=== PATIENT | female | born 1965 | race Caucasian/White ===

== ENCOUNTER 2018-11-11 10:56 | Inpatient (IN) | payer BC ==
[2018-11-11 11:28] VITALS: BMI 30.9
--- NOTE | 2018-11-11 11:46 | HP ---
Screened but not Admitted - Documentation of Visit Screened but not Admitted: Yes Left Prior to Completion of Assessment: No Insurance Authorization Denied: No Level of Care Recommended at this Time: ER Evaluation/Care Additional Information/Explanation: this 53 years old female with alcohol dependence,present in c for evaluation,. fell 2 days ago. ecchymosis with swelling left orbit,right knee with abrsion,left elbow with pain,. hisotry of hypertension,right knee replacement in 2017,abraionn of right knee,. s/p gastric by pass surgery in 2011. ambulation with walker. also complained of abdominal pain. bp 141/86,p112,r20,t97.4. ced 0.096. weight 192,t 5'6''. impression alcohol dependence. multiple contusion of left orbit,right knee, left elbow. s/p right knee replacement. s/p gastric bypass surgery. hypertension. abdominal pain. r/o fx floor of left orbit. ambulation with walker. to er at [facility] for evaluation,endorsed to Dr Kimble. trasported by [facility]. . .
[2018-11-11] MEDS ORDERED: BISMUTH SUBSALICYLATE 524 MG/30 ML UD PO PRN (17:09)
[2018-11-11] MEDS ORDERED: MAGNESIUM CITRATE 300 ML BOTTLE PO PRN (17:09)
[2018-11-11] MEDS ORDERED: MENTHOL/PHENOL 1 EACH UD MM PRN (17:09)
[2018-11-11] MEDS ORDERED: NICOTINE POLACRILEX 2 MG GUM BUC PRN (17:09)
[2018-11-11] MEDS ORDERED: hydrOXYzine PAMOATE 25 MG CAPSULE (FP) PO PRN (17:09)
[2018-11-11] MEDS ORDERED: ONDANSETRON *ODT* 4 MG TABLET SL PRN (17:09)
[2018-11-11] MEDS ORDERED: MAGNESIUM HYDROX 2400MG/30ML ORAL SUSPENSION 30 ML CUP PO PRN (17:09)
[2018-11-11] MEDS ORDERED: chlordiazePOXIDE HCL 25 MG CAPSULE PO PRN (17:09)
[2018-11-11] MEDS ORDERED: ACETAMINOPHEN 325 MG TABLET (FP) PO PRN ×2 (17:09)
[2018-11-11] MEDS ORDERED: ALBUTEROL SO4 8 GM HFA INHALER IH PRN (17:15)
--- NOTE | 2018-11-11 17:32 | HP ---
CIWA Score Nausea/Vomitin-Int. Nausea w/Dry Heave Muscle Tremors: 4-Moderate,w/Arms Extend Anxiety: 3 Agitation: 0-Normal Activity Paroxysmal Sweats: 2 Orientation: 0-Oriented Tacttile Disturbances: 2-Mild Itch/Numbness/Burn Auditory Disturbances: 0-None Visual Disturbances: 2-Mild Sensitivity Headache: 0-None Present CIWA-Ar Total Score: 17 - Admission Criteria OASAS Guidelines: Admission for Medically Managed Detox: Requires at least one of the followin. CIWA greater than 12 2. Seizures within the past 24 hours 3. Delirium tremens within the past 24 hours 4. Hallucinations within the past 24 hours 5. Acute intervention needed for co occurring medical disorder 6. Acute intervention needed for co occurring psychiatric disorder 7. Severe withdrawal that cannot be handled at a lower level of care (continued vomiting, continued diarrhea, abnormal vital signs) requiring intravenous medication and/or fluids 8. Patient presents the following: CIWA greater than 12 Admission Criteria Met: Admission criteria met Admission ROS S - HPI Chief Complaint: " alcohol withdrawal symptoms" Allergies/Adverse Reactions: Allergies Allergy/AdvReac Type Severity Reaction Status Date / Time No Known Allergies Allergy Verified 11/11/18 11:28 History of Present Illness: 53 yo female, presents today for alcohol detox, patient was evaluated for a fall at [facility] today and is medically cleared Neg facial and head CT and x -ray of the knee. Patient with hx of nicotine and alcohol dependence. Last detox [facility] one year ago. PMHX: urinary incontinence, GERD, Gastric Bypass, HTN, Urinary incontinence, asthma. Psych: depression and bipolar. Denies suicidal / homicidal ideation or hx of suicide attempt. Denies hx of seizures. Reports hx of alcohol blackouts. Exam Limitations: No Limitations - Ebola screening Have you traveled outside of the country in the last 21 days: No Have you had contact with anyone from an Ebola affected area: No Have you been sick,other than usual withdrawal symptoms: No - Review of Systems Constitutional: Chills, Loss of Appetite, Changes in sleep, Weakness, Unintentional Wgt. Loss EENT: reports: See HPI, Blurred Vision (uses glasses,), Other (pain mandible from post fall two days ago) Respiratory: reports: No Symptoms reported Cardiac: reports: No Symptoms Reported GI: reports: See HPI, Nausea, Poor Appetite, Poor Fluid Intake, Vomiting, Indigestion : reports: Incontinence Musculoskeletal: reports: Back Pain, Joint Pain (abrassion on the right knee), Muscle Pain Integumentary: reports: Erythema (left blakc eye) Neuro: reports: Numbness (both feet), Tremors, Dizziness Endocrine: reports: Increased Thirst Hematology: reports: See HPI Psychiatric: reports: Orientated x3, Depressed Other Systems: Reviewed and Negative Patient History - Patient Medical History Hx Anemia: No Hx Asthma: Yes Hx Chronic Obstructive Pulmonary Disease (COPD): No Hx Cancer: No Hx Cardiac Disorders: No Hx Hypertension: Yes (on) Hx Hypercholesterolemia: No Hx Pacemaker: No HX Cerebrovascular Accident: No Hx Seizures: No Hx Dementia: No Hx Diabetes: No Hx Gastrointestinal Disorders: No Hx Liver Disease: No Hx Genitourinary Disorders: No Hx Sexually Transmitted Disorders: No Hx Renal Disease (ESRD): No Hx Thyroid Disease: No Hx Hepatitis C: No Hx Depression: Yes Hx Suicide Attempt: No Hx Bipolar Disorder: Yes Hx Schizophrenia: No - Patient Surgical History Past Surgical History: Yes Hx Abdominal Surgery: Yes (Gastric bypass in 2011) Hx Section: Yes Hx Orthopedic Surgery: Yes (R knee replacement 1 yr ago) - PPD History Previous Implant?: Yes Documented Results: Negative w/o proof Implanted On Prior [facility] Admission?: No PPD to be Administered?: Yes - Reproductive History Patient is a Female of Child Bearing Age (11 -55 yrs old): Yes (post menopausal) Patient : No - Smoking Cessation Smoking history: Current every day smoker Have you smoked in the past 12 months: Yes Aproximately how many cigarettes per day: 10 Hx Chewing Tobacco Use: No Initiated information on smoking cessation: Yes 'Breaking Loose' booklet given: 11/11/18 - Substance & Tx. History Hx Alcohol Use: Yes Hx Substance Use: Yes Substance Use Type: Alcohol Hx Substance Use Treatment: Yes ([facility] one year ago ) - Substances Abused Alcohol Route: Oral Frequency: Daily Amount used: 6pk and up Age of first use: 20 Date of Last Use: 11/11/18 Family Disease History - Family Disease History Family History: Denies Admission Physical Exam [facility] - Vital Signs Vital Signs: Vital Signs - 24 hr 11/11/18 11:24 Temperature 97.4 F L Pulse Rate 112 H Respiratory 20 Rate Blood Pressure 141/86 - Physical General Appearance: Yes: Disheveled (unkempt), Mild Distress, Obese, Tremorous, Anxious HEENTM: Yes: EOMI, Hearing grossly Normal, Normocephalic, Normal Voice, GINA, Pharynx Normal, Tm's normal, Other (left periorbital hematoma) Respiratory: Yes: Within Normal Limits Neck: Yes: Within Normal Limits Breast: Yes: Breast Exam Deferred Cardiology: Yes: Regular Rhythm, Regular Rate Abdominal: Yes: Normal Bowel Sounds, Non Tender, Soft, Protuberent Genitourinary: Yes: Incontinient Back: Yes: Normal Inspection Musculoskeletal: Yes: full range of Motion, Pelvis Stable, Other (uses walker for ambulation) Extremities: Yes: Normal Capillary Refill, Normal Inspection, Normal Range of Motion 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 - Diagnostic (1) Hypertension Current Visit: Yes Status: Acute (2) Walker as ambulation aid Current Visit: Yes Status: Chronic (3) Alcohol dependence with withdrawal Current Visit: Yes Status: Acute Qualifiers: Complication of substance-induced condition: uncomplicated Qualified Code(s ): F10.230 - Alcohol dependence with withdrawal, uncomplicated (4) GERD (gastroesophageal reflux disease) Current Visit: Yes Status: Chronic (5) Vertigo Current Visit: Yes Status: Acute (6) Asthma Current Visit: Yes Status: Acute Qualifiers: Asthma severity: mild Asthma persistence: intermittent Asthma complication type: unspecified Qualified Code(s): J45.20 - Mild intermittent asthma, uncomplicated (7) Urinary incontinence Current Visit: Yes Status: Chronic Qualifiers: Urinary Incontinence type: unspecified incontinence Qualified Code(s): R32 - Unspecified urinary incontinence (8) Hx of gastric bypass Current Visit: Yes Status: Chronic (9) Knee abrasion Current Visit: Yes Status: Acute Qualifiers: Encounter type: initial encounter Laterality: right Qualified Code(s): S80.211A - Abrasion, right knee, initial encounter Cleared for Admission S - Detox or Rehab [facility] Level of Care: Medically Managed Detox Regimen/Protocol: Librium [facility] Breath Alcohol Content Breath Alcohol Content: 0.096 Urine Pregancy Test - Result Urine Test Results: Negative - NO Line Present Urine Drug Screen - Results Drug Screen Negative: Yes Inpatient Rehab Admission - Rehab Decision to Admit Inpatient rehab admission?: No
[2018-11-11] MEDS ORDERED: MECLIZINE HCL 12.5 MG TABLET PO PRN (17:46)
[2018-11-11] MEDS: BACLOFEN 10 MG TABLET (FP) PO PRN (18:39)
[2018-11-11] MEDS: THIAMINE HCL 100 MG TABLET (FP) PO SCH (22:47)
[2018-11-11] MEDS: chlordiazePOXIDE HCL 25 MG CAPSULE PO SCH (22:48)
[2018-11-11] MEDS: MELATONIN 5 MG TABLETS PO PRN (22:53)
[2018-11-12 01:59] LABS: URINE APPEARANCE SLCLOUDY; URINE BILIRUBIN NEGATIVE (<2.0 mg/dL); URINE COLOR YELLOW; URINE GLUCOSE (UA) NEGATIVE (NEGATIVE); URINE KETONE NEGATIVE (NEGATIVE); URINE LEUK ESTERASE NEGATIVE (NEGATIVE); URINE NITRITE NEGATIVE (NEGATIVE); URINE PROTEIN 1+ (NEGATIVE); URINE UROBILINOGEN NEGATIVE mg/dL (0.2-1.0)
[2018-11-12 02:06] LABS: EPI CELLS RARE /HPF (FEW); URINE BACTERIA RARE /hpf (NONE SEEN); URINE HYALINE CAST 33 /lpf; URINE MUCUS RARE
[2018-11-12] MEDS: chlordiazePOXIDE HCL 25 MG CAPSULE PO SCH ×4 (05:58→22:10)
[2018-11-12] MEDS: PRENATAL VITAMINS W/ FOLIC ACID TABLET (FP) PO SCH (10:38)
[2018-11-12] MEDS: NICOTINE 14 MG/24 HOURS TOPICAL PATCH TD SCH (10:38)
[2018-11-12] MEDS: LISINOPRIL 10 MG TABLET (FP) PO SCH (10:38)
[2018-11-12] MEDS: PANTOPRAZOLE 20 MG TABLET (FP) PO SCH (10:38)
[2018-11-12] MEDS: IBUPROFEN 400 MG TABLET (FP) PO PRN ×2 (10:38→18:00)
[2018-11-12 10:55] LABS: HEMATOCRIT 42.7 % (32.4-45.2); HEMOGLOBIN 14.5 GM/dL (10.7-15.3); MEAN PLT VOLUME 8.2 fl (7.5-11.1); PLATELET COUNT 151 K/MM3 (134-434); RBC 4.27 M/mm3 (3.60-5.2); RDW 15.4 % (11.6-15.6); WHITE BLOOD COUNT 2.9 K/mm3 (4.0-10.0)
[2018-11-12 11:11] LABS: ALBUMIN 3.3 g/dl (3.4-5.0); ALK PHOS 118 U/L (45-117); ANION GAP 8 MMOL/L (8-16); BILIRUBIN,TOTAL 1.3 mg/dL (0.2-1); BLOOD UREA NITROGEN 13 mg/dL (7-18); CALCIUM 8.5 mg/dL (8.5-10.1); CHLORIDE 102 mmol/L (98-107); CO2 27 mmol/L (21-32); CREATININE 0.7 mg/dL (0.55-1.3); GLUCOSE,RANDOM 110 mg/dL (74-106); POTASSIUM 3.9 mmol/L (3.5-5.1); SGOT/AST 22 U/L (15-37); SGPT/ALT 19 U/L (13-61); SODIUM 137 mmol/L (136-145); TOT PROT 6.7 g/dl (6.4-8.2)
[2018-11-12 12:27] LABS: RPR REACTIVE 1:4 (NONREACTIVE)
--- NOTE | 2018-11-12 14:47 | PN ---
[facility] CIWA - CIWA Score Nausea/Vomitin-Mild Nausea/No Vomiting Muscle Tremors: 3 Anxiety: 2 Agitation: 1-Slight > Activity Paroxysmal Sweats: 1-Minimal Palms Moist Orientation: 2-Disoriented Date<2 days Tacttile Disturbances: 0-None Auditory Disturbances: 0-None Visual Disturbances: 0-None Headache: 1-Very Mild CIWA-Ar Total Score: 11 S Progress Note (SOAP) Subjective: tremor sweating restlessness anxiety Objective: 11/12/18 14:47 Vital Signs Temperature 98.7 F 11/12/18 13:27 Pulse Rate 71 11/12/18 13:27 Respiratory Rate 18 11/12/18 13:27 Blood Pressure 108/74 11/12/18 13:27 O2 Sat by Pulse Oximetry (%) Laboratory Last Values WBC 2.9 K/mm3 (4.0-10.0) L 11/12/18 07:00 RBC 4.27 M/mm3 (3.60-5.2) 11/12/18 07:00 Hgb 14.5 GM/dL (10.7-15.3) 11/12/18 07:00 Hct 42.7 % (32.4-45.2) 11/12/18 07:00 MCV 100.0 fl (80-96) H 11/12/18 07:00 MCH 34.0 pg (25.7-33.7) H 11/12/18 07:00 MCHC 34.0 g/dl (32.0-36.0) 11/12/18 07:00 RDW 15.4 % (11.6-15.6) 11/12/18 07:00 Plt Count 151 K/MM3 (134-434) 11/12/18 07:00 MPV 8.2 fl (7.5-11.1) 11/12/18 07:00 Sodium 137 mmol/L (136-145) 11/12/18 07:00 Potassium 3.9 mmol/L (3.5-5.1) 11/12/18 07:00 Chloride 102 mmol/L (98-107) 11/12/18 07:00 Carbon Dioxide 27 mmol/L (21-32) 11/12/18 07:00 Anion Gap 8 MMOL/L (8-16) 11/12/18 07:00 BUN 13 mg/dL (7-18) 11/12/18 07:00 Creatinine 0.7 mg/dL (0.55-1.3) 11/12/18 07:00 Creat Clearance w eGFR > 60 (>60) 11/12/18 07:00 Random Glucose 110 mg/dL (74-106) H 11/12/18 07:00 Calcium 8.5 mg/dL (8.5-10.1) 11/12/18 07:00 Total Bilirubin 1.3 mg/dL (0.2-1) H 11/12/18 07:00 AST 22 U/L (15-37) 11/12/18 07:00 ALT 19 U/L (13-61) 11/12/18 07:00 Alkaline Phosphatase 118 U/L (45-117) H 11/12/18 07:00 Total Protein 6.7 g/dl (6.4-8.2) 11/12/18 07:00 Albumin 3.3 g/dl (3.4-5.0) L 11/12/18 07:00 Urine Color Yellow 11/11/18 23:18 Urine Appearance Slcloudy 11/11/18 23:18 Urine pH 5.0 (5.0-8.0) 11/11/18 23:18 Ur Specific [place] 1.013 (1.010-1.035) 11/11/18 23:18 Urine Protein 1+ (NEGATIVE) H 11/11/18 23:18 Urine Glucose (UA) Negative (NEGATIVE) 11/11/18 23:18 Urine Ketones Negative (NEGATIVE) 11/11/18 23:18 Urine Blood 1+ (NEGATIVE) H 11/11/18 23:18 Urine Nitrite Negative (NEGATIVE) 11/11/18 23:18 Urine Bilirubin Negative (<2.0 mg/dL) 11/11/18 23:18 Urine Urobilinogen Negative mg/dL (0.2-1.0) 11/11/18 23:18 Ur Leukocyte Esterase Negative (NEGATIVE) 11/11/18 23:18 Urine WBC (Auto) 3 /hpf (3-5) 11/11/18 23:18 Urine RBC (Auto) 2 /hpf (0-3) 11/11/18 23:18 Ur Epithelial Cells Rare /HPF (FEW) 11/11/18 23:18 Urine Bacteria Rare /hpf (NONE SEEN) 11/11/18 23:18 Hyaline Casts 33 /lpf 11/11/18 23:18 Urine Mucus Rare 11/11/18 23:18 RPR Titer Reactive 1:4 (NONREACTIVE) H 11/12/18 07:00 lab noted wait fhromha repeat cbc 11/12/18 14:49 Assessment: 11/12/18 14:49 alcohol withdrawal Plan: continue detox
[2018-11-12 15:12] LABS: TREPONEMA ANTIBODY REACTIVE (NONREACTIVE)
[2018-11-12] MEDS: BACLOFEN 10 MG TABLET (FP) PO PRN ×2 (15:22→22:10)
--- NOTE | 2018-11-12 15:30 | CONSULT ---
[facility] Psychiatric Consult - Data Date of interview: 11/12/18 Admission source: [facility] Identifying data: First admission to [facility] for this 53 y/o [place] female, self-referred for detoxification (alcohol). Interviewed at [address] [place] [address]. Patient is single, a mother of two, domiciled, unemployed (disabled) and supported on SSI benefits. Substance Abuse History: Confirmed by patient in this session. Details in current [facility] report as follows : Smoking Cessation. Smoking history: Current every day smoker. Have you smoked in the past 12 months: Yes. Aproximately how many cigarettes per day: 10. Hx Chewing Tobacco Use: No. Initiated information on smoking cessation: Yes. 'Breaking Loose' booklet given: . - Substance & Tx. History. Hx Alcohol Use: Yes. Hx Substance Use: Yes. Substance Use Type: Alcohol. Hx Substance Use Treatment: Yes ([facility] ). - Substances Abused. Alcohol. Route: Oral. Frequency: Daily. Amount used: 6pk and up. Age of first use: 20. Date of Last Use: 11/11 Medical History: Remarkable for bronchial asthma, hypertension, GERD, urinary incontinence, gastric bypass (2011), right knee arthroplasty in December 2017 and recent fall at home (noted left periorbital hematoma). Patient ambulates with a walker. Psychiatric History: Remote history of one psychiatric hospitalization, years ago, in the [place] for a psychotic episode. No subsequent decompensations are reported by the patient. However, she indicates continuous psychiatric OPD care at various facilities across the [place]. Patient endorses the diagnosis of Bipolar Disorder and she currently sees Dr Campos, consulting psychiatrist, at the [facility] in the [place]. NO show to the program for three weeks (self-report).Ms Boswell has been treated with a number of psychotropic medications which include citalopram, zolpidem, trazodone, valproate, alprazolam and lamotrigine. Chronically non-adherent to psychotropic medications. Patient denies history of suicide attempts. Physical/Sexual Abuse/Trauma History: Patient denies history of abuse. Additional Comment: Drug Screen is negative. Mental Status Exam - Mental Status Exam Alert and Oriented to: Time, Place, Person Cognitive Function: Good Patient Appearance: Well Groomed (overweight) Mood: Nervous, Anxious Affect: Mood Congruent, Constricted Patient Behavior: Fatigued, Appropriate, Cooperative Speech Pattern: Clear, Appropriate (more comfortable in indonesian ; exhibits decent understanding of divehi) Voice Loudness: Normal Thought Process: Intact, Goal Oriented Thought Disorder: Not Present Hallucinations: Denies Suicidal Ideation: Denies Homicidal Ideation: Denies Insight/Judgement: Poor Sleep: Poorly, Difficulty falling asleep Appetite: Good Gait/Station: Other (uses a walker for ambulation) Psychiatric Findings - Problem List ([place] 1, 2,3) (1) Alcohol dependence with withdrawal Current Visit: Yes Status: Acute Qualifiers: Complication of substance-induced condition: uncomplicated Qualified Code(s ): F10.230 - Alcohol dependence with withdrawal, uncomplicated (2) Nicotine dependence Current Visit: Yes Status: Chronic (3) Insomnia Current Visit: Yes Status: Chronic (4) Substance induced mood disorder Current Visit: Yes Status: Chronic (5) History of bipolar disorder Current Visit: Yes Status: Chronic (6) Non-compliant patient Current Visit: Yes Status: Chronic Comment: No show to [place] for 2- 3 weeks as per self-report. Does not take medications as prescribed. (7) Walker as ambulation aid Current Visit: Yes Status: Chronic - Initial Treatment Plan Initial Treatment Plan: Psychoeducation. Sleep hygiene. Detoxification. Support. Relapse prevention : discussed with the patient. AA meetings. Groups. Patient declines to resume mood stabilizers. Observation.
[2018-11-12] MEDS: MAG HYDROX/AL HYDROX/SIMETH 30 ML UNIT-DOSE CUP PO PRN (18:14)
[2018-11-12] MEDS: MELATONIN 5 MG TABLETS PO PRN (22:10)
[2018-11-12] MEDS: THIAMINE HCL 100 MG TABLET (FP) PO SCH (22:10)
[2018-11-13] MEDS: chlordiazePOXIDE HCL 25 MG CAPSULE PO SCH ×2 (07:43→11:06)
[2018-11-13] MEDS: PANTOPRAZOLE 20 MG TABLET (FP) PO SCH (09:44)
[2018-11-13] MEDS: NICOTINE 14 MG/24 HOURS TOPICAL PATCH TD SCH (09:44)
[2018-11-13] MEDS: PRENATAL VITAMINS W/ FOLIC ACID TABLET (FP) PO SCH (09:46)
[2018-11-13] MEDS: BACLOFEN 10 MG TABLET (FP) PO PRN ×2 (09:47→22:11)
[2018-11-13 10:26] LABS: BASO % 1.3 % (0-2.0); EOS % 3.5 % (0-4.5); HEMATOCRIT 41.6 % (32.4-45.2); HEMOGLOBIN 14.1 GM/dL (10.7-15.3); LYMPH % 37.8 % (8-40); MCHC 33.9 g/dl (32.0-36.0); MEAN CELL VOLUME 100.4 fl (80-96); MEAN PLT VOLUME 8.8 fl (7.5-11.1); MONO % 15.6 % (3.8-10.2); NEUT % 41.8 % (42.8-82.8); PLATELET COUNT 148 K/MM3 (134-434); RBC 4.14 M/mm3 (3.60-5.2); RDW 14.8 % (11.6-15.6); WHITE BLOOD COUNT 3.3 K/mm3 (4.0-10.0)
[2018-11-13] MEDS: MAG HYDROX/AL HYDROX/SIMETH 30 ML UNIT-DOSE CUP PO PRN (12:32)
[2018-11-13] MEDS ORDERED: diazePAM 5 MG TABLET PO PRN (13:37)
[2018-11-13] MEDS: LISINOPRIL 10 MG TABLET (FP) PO SCH (13:37)
[2018-11-13] MEDS: IBUPROFEN 400 MG TABLET (FP) PO PRN (15:18)
[2018-11-13] MEDS: diazePAM 5 MG TABLET PO SCH ×2 (15:18→22:11)
--- NOTE | 2018-11-13 16:06 | PN ---
[facility] CIWA - CIWA Score Nausea/Vomitin-No Nausea/No Vomiting Muscle Tremors: None Anxiety: 1-Mildly Anxious Agitation: 1-Slight > Activity Paroxysmal Sweats: 3 Orientation: 0-Oriented Tacttile Disturbances: 2-Mild Itch/Numbness/Burn Auditory Disturbances: 0-None Visual Disturbances: 2-Mild Sensitivity Headache: 0-None Present CIWA-Ar Total Score: 9 S Progress Note (SOAP) Subjective: Body Aches, Stomach Cramping, Sweating, Interrupted Sleep. Objective: PATIENT A & O X 3, OBSERVED AMBULATING ON UNIT WITH ASSISTANCE OF A WALKER.. IN NO ACUTE DISTRESS. 11/13/18 16:05 Vital Signs Temperature 99.4 F 11/13/18 14:15 Pulse Rate 69 11/13/18 14:15 Respiratory Rate 20 11/13/18 14:15 Blood Pressure 130/84 11/13/18 14:15 O2 Sat by Pulse Oximetry (%) Laboratory Tests 11/11/18 11/12/18 11/12/18 23:18 07:00 07:00 WBC 2.9 L RBC 4.27 Hgb 14.5 Hct 42.7 MCV 100.0 H MCH 34.0 H MCHC 34.0 RDW 15.4 Plt Count 151 MPV 8.2 Absolute Neuts (auto) Neutrophils % Lymphocytes % Monocytes % Eosinophils % Basophils % Nucleated RBC % Sodium 137 Potassium 3.9 Chloride 102 Carbon Dioxide 27 Anion Gap 8 BUN 13 Creatinine 0.7 Creat Clearance w eGFR > 60 Random Glucose 110 H Calcium 8.5 Total Bilirubin 1.3 H AST 22 ALT 19 Alkaline Phosphatase 118 H Total Protein 6.7 Albumin 3.3 L Urine Color Yellow Urine Appearance Slcloudy Urine pH 5.0 Ur Specific [place] 1.013 Urine Protein 1+ H Urine Glucose (UA) Negative Urine Ketones Negative Urine Blood 1+ H Urine Nitrite Negative Urine Bilirubin Negative Urine Urobilinogen Negative Ur Leukocyte Esterase Negative Urine WBC (Auto) 3 Urine RBC (Auto) 2 Ur Epithelial Cells Rare Urine Bacteria Rare Hyaline Casts 33 Urine Mucus Rare RPR Titer T.pallidum Ab (A) 11/12/18 11/13/18 07:00 07:00 WBC 3.3 L RBC 4.14 Hgb 14.1 Hct 41.6 MCV 100.4 H MCH 34.0 H MCHC 33.9 RDW 14.8 Plt Count 148 MPV 8.8 Absolute Neuts (auto) 1.4 L Neutrophils % 41.8 L Lymphocytes % 37.8 Monocytes % 15.6 H Eosinophils % 3.5 Basophils % 1.3 Nucleated RBC % 0 Sodium Potassium Chloride Carbon Dioxide Anion Gap BUN Creatinine Creat Clearance w eGFR Random Glucose Calcium Total Bilirubin AST ALT Alkaline Phosphatase Total Protein Albumin Urine Color Urine Appearance Urine pH Ur Specific [place] Urine Protein Urine Glucose (UA) Urine Ketones Urine Blood Urine Nitrite Urine Bilirubin Urine Urobilinogen Ur Leukocyte Esterase Urine WBC (Auto) Urine RBC (Auto) Ur Epithelial Cells Urine Bacteria Hyaline Casts Urine Mucus RPR Titer Reactive 1:4 H T.pallidum Ab (MHA) Reactive LABS NOTED. RESULTS OF REPEAT CBC NOTED. INCREASE IN WBC LEVEL NOTED. 11/13/18 16:07 Assessment: 11/13/18 16:07 WITHDRAWAL SYMPTOMS. LEUKOPENIA. 11/13/18 16:07 Plan: CONTINUE DETOX.
--- NOTE | 2018-11-13 17:30 | PN ---
Psychiatric Progress Note Vital Signs: Vital Signs Period Temp Pulse Resp BP Sys/Desir Pulse Ox Last 24 Hr 96.1 F-99.4 F 59-92 16-20 102-130/68-84 Date of Session: 11/13/18 Chief Complaint:: " I can't sleep" HPI: Patient reports difficulty sleeping and is requesting a sleep aid. ROS: Gastric bypass in 2012, Right knee replacement, hypertension, asthma. Current Medications: Active Medications Generic Name Dose Route Start Last Admin Trade Name Freq PRN Reason Stop Dose Admin Acetaminophen 650 mg 11/11/18 17:09 Tylenol - PO Q6H PRN PAIN LEVEL 4 - 6 Acetaminophen 650 mg 11/11/18 17:09 Tylenol - PO Q6H PRN FEVER Al Hydroxide/Mg Hydroxide 30 ml 11/11/18 17:09 11/13/18 12:32 Mylanta Oral Suspension - PO 30 ml Q6H PRN Administration DYSPEPSIA Albuterol Sulfate 2 puff 11/11/18 17:15 Ventolin Hfa Inhaler - IH Q4H PRN ASTHMA Baclofen 10 mg 11/11/18 17:09 11/13/18 09:47 Lioresal - PO 11/17/18 17:13 10 mg Q8H PRN Administration Muscle Spasms Bismuth Subsalicylate 524 mg 11/11/18 17:09 Pepto-Bismol - PO Q1H PRN DIARRHEA Diazepam 5 mg 11/13/18 14:00 11/13/18 15:18 Valium - PO 11/14/18 06:01 5 mg TID GRETEL Administration Diazepam 5 mg 11/14/18 14:00 Valium - PO 11/14/18 22:01 1400,2200 GRETEL Diazepam 5 mg 11/15/18 06:00 Valium - PO 11/15/18 06:01 ONCE ONE Diazepam 10 mg 11/13/18 13:37 Valium - PO 11/14/18 13:36 Q4H PRN WITHDRAWAL(CONT SUBST) Eucalyptus/Menthol/Phenol/Sorbitol 1 each 11/11/18 17:09 Cepastat Lozenge - MM 11/17/18 17:09 Q4H PRN SORE THROAT Hydroxyzine Pamoate 25 mg 11/11/18 17:09 Vistaril - PO 11/17/18 17:09 Q6H PRN For Anxiety Ibuprofen 400 mg 11/11/18 17:09 11/13/18 15:18 Motrin - PO 400 mg Q6H PRN Administration PAIN LEVEL 1 - 3 Lisinopril 10 mg 11/12/18 10:00 11/13/18 13:37 Prinivil PO 10 mg DAILY GRETEL Administration Magnesium Citrate 300 ml 11/11/18 17:09 Citroma - PO Q48H PRN CONSTIPATION Magnesium Hydroxide 30 ml 11/11/18 17:09 Milk Of Magnesia - PO PRN PRN CONSTIPATION Meclizine HCl 12.5 mg 11/11/18 17:46 Antivert - PO Q12H PRN VERTIGO Melatonin 5 mg 11/11/18 17:09 11/12/18 22:10 Melatonin PO 5 mg HS PRN Administration INSOMNIA Nicotine 14 mg 11/12/18 10:00 11/13/18 09:44 Nicoderm Patch - TD 14 mg DAILY GRETEL Administration Nicotine Polacrilex 2 mg 11/11/18 17:09 Nicorette Gum - BUC Q2H PRN NICOTINE REPLACEMENT RX Ondansetron HCl 4 mg 11/11/18 17:09 Zofran Odt - SL 11/17/18 17:13 Q12H PRN Nausea/Vomiting Pantoprazole Sodium 20 mg 11/12/18 10:00 11/13/18 09:44 Protonix - PO 20 mg DAILY GRETEL Administration Multivit/Folic Acid/Iron 1 tab 11/12/18 10:00 11/13/18 09:46 Vitamins (Sjr) - PO 1 tab DAILY GRETEL Administration Thiamine HCl 100 mg 11/11/18 22:00 11/12/18 22:10 Vitamin B1 - PO 100 mg HS GRETEL Administration Trazodone HCl 100 mg 11/13/18 22:00 Desyrel - PO HS [facility] Medication(s) Change(s): Yes. Will add trazodone 100mg. Current Side Effect: No Lab tests ordered: No Lab tests reviewed: Yes Provider note:: Patient is a 53 year old female, mother of one, domiciled and supported by [facility]. Patient with h/o one psychiatric hospitalization in [place] approximately 30 years ago secondary to drug induced psychosis. Throughout the years she reports multiple outpatient psychiatric care in [place], [place] and [facility]. She is currently receiving outpatient psychiatric care at [facility] and is prescribed celexa 10mg + lamictal (unknown dose) + Depakote (unknown dose) and trazodone 300mg. Patient reports noncompliance to lamictal and depakote. She last accepted celexa and trazdone one week ago. She denies h/o suicide attempt. No psychosis noted. At present, patient reports difficulty sleeping. Will order Trazodone 100mg HS. Total face to face time:: 25 Mental Status Exam - Mental Status Exam Alert and Oriented to: Time, Place, Person Cognitive Function: Good Patient Appearance: Unkempt Mood: Euthymic Affect: Mood Congruent Patient Behavior: Appropriate, Cooperative Speech Pattern: Appropriate (Grenadian speaking) Thought Process: Intact, Goal Oriented Thought Disorder: Not Present Hallucinations: Denies Suicidal Ideation: Denies Homicidal Ideation: Denies Insight/Judgement: Poor Sleep: Poorly Appetite: Fair Muscle strength/Tone: Normal Gait/Station: Normal Psychiatric Treatment Plan - Problem List (1) Mood disorder Current Visit: No (2) Alcohol dependence with withdrawal Current Visit: Yes Qualifiers: Complication of substance-induced condition: uncomplicated Qualified Code(s ): F10.230 - Alcohol dependence with withdrawal, uncomplicated (3) Insomnia Current Visit: Yes
[2018-11-13] MEDS: THIAMINE HCL 100 MG TABLET (FP) PO SCH (22:10)
[2018-11-13] MEDS: traZODone HCL 100 MG TABLET (FP) PO SCH (22:11)
[2018-11-13] MEDS ORDERED: chlordiazePOXIDE HCL 10 MG CAPSULE PO SCH (23:00)
[2018-11-13] MEDS ORDERED: chlordiazePOXIDE HCL 10 MG CAPSULE PO PRN (23:00)
[2018-11-14] MEDS: diazePAM 5 MG TABLET PO SCH ×3 (06:00→22:08)
[2018-11-14] MEDS: LISINOPRIL 10 MG TABLET (FP) PO SCH (10:22)
[2018-11-14] MEDS: NICOTINE 14 MG/24 HOURS TOPICAL PATCH TD SCH (10:22)
[2018-11-14] MEDS: PANTOPRAZOLE 20 MG TABLET (FP) PO SCH (10:22)
[2018-11-14] MEDS: PRENATAL VITAMINS W/ FOLIC ACID TABLET (FP) PO SCH (10:22)
[2018-11-14] MEDS: BACLOFEN 10 MG TABLET (FP) PO PRN (10:22)
[2018-11-14] MEDS: MAG HYDROX/AL HYDROX/SIMETH 30 ML UNIT-DOSE CUP PO PRN (16:43)
--- NOTE | 2018-11-14 17:55 | PN ---
[facility] Progress Note (SOAP) Subjective: Body Aches, Sweating, Interrupted Sleep. Patient reports that withdrawal symptoms in general are subsiding in severity. Objective: PATIENT A & O X 2 (UNCERTAIN ABOUT CURRENT DAY / DATE). PATIENT OBSERVED AMBULATING ON UNIT WITH ASSISTANCE OF A WALKER. IN NO ACUTE DISTRESS. 11/14/18 17:55 Vital Signs Temperature 98.7 F 11/14/18 17:49 Pulse Rate 90 11/14/18 17:49 Respiratory Rate 18 11/14/18 17:49 Blood Pressure 106/75 11/14/18 17:49 O2 Sat by Pulse Oximetry (%) Laboratory Tests 11/11/18 11/12/18 11/12/18 23:18 07:00 07:00 WBC 2.9 L RBC 4.27 Hgb 14.5 Hct 42.7 MCV 100.0 H MCH 34.0 H MCHC 34.0 RDW 15.4 Plt Count 151 MPV 8.2 Absolute Neuts (auto) Neutrophils % Lymphocytes % Monocytes % Eosinophils % Basophils % Nucleated RBC % Sodium 137 Potassium 3.9 Chloride 102 Carbon Dioxide 27 Anion Gap 8 BUN 13 Creatinine 0.7 Creat Clearance w eGFR > 60 Random Glucose 110 H Calcium 8.5 Total Bilirubin 1.3 H AST 22 ALT 19 Alkaline Phosphatase 118 H Total Protein 6.7 Albumin 3.3 L Urine Color Yellow Urine Appearance Slcloudy Urine pH 5.0 Ur Specific Veteran 1.013 Urine Protein 1+ H Urine Glucose (UA) Negative Urine Ketones Negative Urine Blood 1+ H Urine Nitrite Negative Urine Bilirubin Negative Urine Urobilinogen Negative Ur Leukocyte Esterase Negative Urine WBC (Auto) 3 Urine RBC (Auto) 2 Ur Epithelial Cells Rare Urine Bacteria Rare Hyaline Casts 33 Urine Mucus Rare RPR Titer T.pallidum Ab (A) 11/12/18 11/13/18 07:00 07:00 WBC 3.3 L RBC 4.14 Hgb 14.1 Hct 41.6 MCV 100.4 H MCH 34.0 H MCHC 33.9 RDW 14.8 Plt Count 148 MPV 8.8 Absolute Neuts (auto) 1.4 L Neutrophils % 41.8 L Lymphocytes % 37.8 Monocytes % 15.6 H Eosinophils % 3.5 Basophils % 1.3 Nucleated RBC % 0 Sodium Potassium Chloride Carbon Dioxide Anion Gap BUN Creatinine Creat Clearance w eGFR Random Glucose Calcium Total Bilirubin AST ALT Alkaline Phosphatase Total Protein Albumin Urine Color Urine Appearance Urine pH Ur Specific Veteran Urine Protein Urine Glucose (UA) Urine Ketones Urine Blood Urine Nitrite Urine Bilirubin Urine Urobilinogen Ur Leukocyte Esterase Urine WBC (Auto) Urine RBC (Auto) Ur Epithelial Cells Urine Bacteria Hyaline Casts Urine Mucus RPR Titer Reactive 1:4 H T.pallidum Ab ([facility]HA) Reactive LABS NOTED. 11/14/18 17:57 Assessment: 11/14/18 17:56 WITHDRAWAL SYMPTOMS. Plan: CONTINUE DETOX. PATIENT SCHEDULED FOR D/C TOMORROW.
[2018-11-14] MEDS: MELATONIN 5 MG TABLETS PO PRN (22:07)
[2018-11-14] MEDS: THIAMINE HCL 100 MG TABLET (FP) PO SCH (22:08)
[2018-11-14] MEDS: traZODone HCL 100 MG TABLET (FP) PO SCH (22:08)
[2018-11-14] MEDS ORDERED: chlordiazePOXIDE HCL 10 MG CAPSULE PO SCH (23:00)
[2018-11-15] MEDS ORDERED: diazePAM 5 MG TABLET PO ONE (06:00)
[2018-11-15 06:28] VITALS: PULSE 76
[2018-11-15 09:27] VITALS: BP 120/76; TEMP 99
[2018-11-15] MEDS: LISINOPRIL 10 MG TABLET (FP) PO SCH (10:09)
[2018-11-15] MEDS: PRENATAL VITAMINS W/ FOLIC ACID TABLET (FP) PO SCH (10:09)
[2018-11-15] MEDS: PANTOPRAZOLE 20 MG TABLET (FP) PO SCH (10:09)
[2018-11-15] MEDS: NICOTINE 14 MG/24 HOURS TOPICAL PATCH TD SCH (10:09)
--- NOTE | 2018-11-15 20:55 | DS ---
[facility] Detox Discharge Summary Admission Date: 11/11/18 Discharge Date: 11/15/18 - History Present History: Alcohol Dependence Additional Comments: PATIENT GOING HOME. PATIENT REPORTS THAT SHE WILL GO TO [facility] ([place], [place]) FOR AFTERCARE.PATIENT ADVISED TO FOLLOW- UP WITH SPA MANAGER WHEN POSIBLE AFTER DISCHARGE FROM DETOX UNIT FOR FOLLOW-UP EVALUATION FOR HISTORY OF FALL AND ENSUING INJURIES THAT OCCURRED PRIOR TO ADMISSION TO DETOX UNIT. PATIENT VERBALIZED UNDERSTANDING OF RECOMMENDATION. TRANSPORTATION ARRANGED BY UNIT STAFF TO TAKE PATIENT BACK HOME FROM DETOX UNIT PATIENT WAS DISCHARGED FROM DETOX UNIT IN STABLE MEDICAL CONDITION. Pertinent Past History: Asthma, HTN, History of G.E.R.D., History of Bipolar Disorder, Use Of Walker As Ambulatory Aid, History of Vertigo, History of Urinary Incontinence, History of Fall With Contusion To Face, To Right Shoulder, and To Right Knee, History of Gastric Bypass, Knee Abrasion, Nicotine Dependence, History of Insomnia. - Physical Exam Results Vital Signs: Vital Signs Temperature 99 F 11/15/18 09:26 Pulse Rate 76 11/15/18 09:26 Respiratory Rate 18 11/15/18 09:26 Blood Pressure 120/76 11/15/18 09:26 O2 Sat by Pulse Oximetry (%) Pertinent Admission Physical Exam Findings: WITHDRAWAL SYMPTOMS. Laboratory Tests 11/11/18 11/12/18 11/12/18 23:18 07:00 07:00 WBC 2.9 L RBC 4.27 Hgb 14.5 Hct 42.7 MCV 100.0 H MCH 34.0 H MCHC 34.0 RDW 15.4 Plt Count 151 MPV 8.2 Absolute Neuts (auto) Neutrophils % Lymphocytes % Monocytes % Eosinophils % Basophils % Nucleated RBC % Sodium 137 Potassium 3.9 Chloride 102 Carbon Dioxide 27 Anion Gap 8 BUN 13 Creatinine 0.7 Creat Clearance w eGFR > 60 Random Glucose 110 H Calcium 8.5 Total Bilirubin 1.3 H AST 22 ALT 19 Alkaline Phosphatase 118 H Total Protein 6.7 Albumin 3.3 L Urine Color Yellow Urine Appearance Slcloudy Urine pH 5.0 Ur Specific [place] 1.013 Urine Protein 1+ H Urine Glucose (UA) Negative Urine Ketones Negative Urine Blood 1+ H Urine Nitrite Negative Urine Bilirubin Negative Urine Urobilinogen Negative Ur Leukocyte Esterase Negative Urine WBC (Auto) 3 Urine RBC (Auto) 2 Ur Epithelial Cells Rare Urine Bacteria Rare Hyaline Casts 33 Urine Mucus Rare RPR Titer T.pallidum Ab (MHA) 11/12/18 11/13/18 07:00 07:00 WBC 3.3 L RBC 4.14 Hgb 14.1 Hct 41.6 MCV 100.4 H MCH 34.0 H MCHC 33.9 RDW 14.8 Plt Count 148 MPV 8.8 Absolute Neuts (auto) 1.4 L Neutrophils % 41.8 L Lymphocytes % 37.8 Monocytes % 15.6 H Eosinophils % 3.5 Basophils % 1.3 Nucleated RBC % 0 Sodium Potassium Chloride Carbon Dioxide Anion Gap BUN Creatinine Creat Clearance w eGFR Random Glucose Calcium Total Bilirubin AST ALT Alkaline Phosphatase Total Protein Albumin Urine Color Urine Appearance Urine pH Ur Specific [place] Urine Protein Urine Glucose (UA) Urine Ketones Urine Blood Urine Nitrite Urine Bilirubin Urine Urobilinogen Ur Leukocyte Esterase Urine WBC (Auto) Urine RBC (Auto) Ur Epithelial Cells Urine Bacteria Hyaline Casts Urine Mucus RPR Titer Reactive 1:4 H T.pallidum Ab (MHA) Reactive LABS NOTED. - Treatment Hospital Course: Detox Protocol Followed, Detoxed Safely, Responded well, Discharged Condition Good Patient has Accepted a Rehab Referral to: PATIENT WILL ATTEND [facility] ([place], [place]). - Medication Discharge Medications: Ambulatory Orders Captopril 50 mg PO DAILY 11/11/18 Citalopram Hydrobromide [Celexa -] 10 mg PO DAILY 11/11/18 Lamotrigine [Lamictal -] 0 mg PO DAILY 11/11/18 Albuterol Sulfate Inhaler - [Ventolin Hfa Inhaler -] 2 inh PO Q4H PRN #1 inhaler 11/15/18 Omeprazole 20 mg PO DAILY 30 Days #30 tablet. 11/15/18 - Diagnosis (1) Alcohol dependence with withdrawal Status: Acute Qualifiers: Complication of substance-induced condition: uncomplicated Qualified Code(s ): F10.230 - Alcohol dependence with withdrawal, uncomplicated (2) Hypertension Status: Acute Qualifiers: Hypertension type: unspecified Qualified Code(s): I10 - Essential (primary ) hypertension (3) Knee abrasion Status: Acute Qualifiers: Encounter type: initial encounter Laterality: right Qualified Code(s): S80.211A - Abrasion, right knee, initial encounter (4) Leukopenia Status: Acute Qualifiers: Leukopenia type: unspecified Qualified Code(s): D72.819 - Decreased white blood cell count, unspecified (5) Vertigo Status: Acute (6) GERD (gastroesophageal reflux disease) Status: Chronic Qualifiers: Esophagitis presence: esophagitis presence not specified Qualified Code(s) : K21.9 - Gastro-esophageal reflux disease without esophagitis (7) Hx of gastric bypass Status: Chronic (8) Urinary incontinence Status: Chronic Qualifiers: Urinary Incontinence type: unspecified incontinence Qualified Code(s): R32 - Unspecified urinary incontinence (9) Walker as ambulation aid Status: Chronic (10) History of bipolar disorder Status: Chronic (11) Insomnia Status: Chronic Qualifiers: Insomnia type: unspecified Qualified Code(s): G47.00 - Insomnia, unspecified (12) Nicotine dependence Status: Chronic Qualifiers: Nicotine product type: cigarettes Substance use status: uncomplicated Qualified Code(s): F17.210 - Nicotine dependence, cigarettes, uncomplicated (13) Non-compliant patient Status: Chronic (14) Substance induced mood disorder Status: Chronic (15) Closed head injury Status: Acute Qualifiers: Encounter type: subsequent encounter Qualified Code(s): S09.90XD - Unspecified injury of head, subsequent encounter (16) Knee contusion Status: Acute Qualifiers: Encounter type: subsequent encounter Laterality: right Qualified Code(s) : S80.01XD - Contusion of right knee, subsequent encounter (17) Shoulder contusion Status: Acute Qualifiers: Encounter type: subsequent encounter Laterality: right Qualified Code(s) : S40.011D - Contusion of right shoulder, subsequent encounter (18) Asthma Status: Acute Qualifiers: Asthma severity: mild Asthma persistence: intermittent Asthma complication type: unspecified Qualified Code(s): J45.20 - Mild intermittent asthma, uncomplicated - AMA Did Patient Leave Against Medical Advice: No
== END 2018-11-15 11:00 | disposition home or self-care (01) | DRG 775 ==
LOC: YASAS 10:56 → Y3N 17:13
PROVIDERS: ADMIT Surgery; ATTEND Surgery
PROC: HZ2ZZZZ Detoxification Services for Substance Abuse Treatment (ICD-10-PCS; principal; 2018-11-11)
DX: F10.230 Alcohol dependence with withdrawal, uncomplicated (principal); F17.210 Nicotine dependence, cigarettes, uncomplicated; F31.9 Bipolar disorder, unspecified; F19.24 Other psychoactive substance dependence with psychoactive substance-induced mood disorder; I10 Essential (primary) hypertension; J45.20 Mild intermittent asthma, uncomplicated; G47.00 Insomnia, unspecified; D72.819 Decreased white blood cell count, unspecified; R42 Dizziness and giddiness; K21.9 Gastro-esophageal reflux disease without esophagitis; R26.89 Other abnormalities of gait and mobility; Z99.89 Dependence on other enabling machines and devices; S80.211A Abrasion, right knee, initial encounter; S80.01XA Contusion of right knee, initial encounter; W19.XXXA Unspecified fall, initial encounter; Z96.651 Presence of right artificial knee joint; Z98.84 Bariatric surgery status; Z91.19 Patient's noncompliance with other medical treatment and regimen
CPT/HCPCS: 36415; 80053; 81003; 81015; 85025; 85027; 86593; 86780; J0475

== ENCOUNTER 2018-11-11 12:06 | Emergency (ER) | payer BC ==
[2018-11-11 13:00] VITALS: BP 141/78; PULSE 102; TEMP 98; BMI 30.9
--- NOTE | 2018-11-11 13:52 | PDOC ---
History of Present Illness - General Chief Complaint: Injury Stated Complaint: FALL Time Seen by Provider: 11/11/18 13:28 - History of Present Illness Initial Comments: 11/11/18 13:47 53-year-old female presents for evaluation of right knee pain and dizziness after fall 2 days ago. She admits to drinking, she states she had 2 beers this morning prior to arrival. There were 12 ounces a piece. Past History - Past Medical History Allergies/Adverse Reactions: Allergies Allergy/AdvReac Type Severity Reaction Status Date / Time No Known Allergies Allergy Verified 11/11/18 11:28 Home Medications: Ambulatory Orders Albuterol Sulfate Inhaler - [Ventolin Hfa Inhaler -] 2 inh PO Q4H PRN 11/11/18 Captopril 50 mg PO DAILY 11/11/18 Citalopram Hydrobromide [Celexa -] 10 mg PO DAILY 11/11/18 Lamotrigine [Lamictal -] 0 mg PO DAILY 11/11/18 Omeprazole 20 mg PO DAILY 11/11/18 COPD: No Other medical history: etoh abuse - Suicide/Smoking/Psychosocial Hx Smoking History: Current every day smoker Number of Cigarettes Smoked Daily: 10 Information on smoking cessation initiated: Yes Hx Alcohol Use: Yes (etoh 0.096) Review of Systems - Review of Systems Musculoskeletal: Yes: Joint Pain Neurological: Yes: Dizziness *Physical Exam - Vital Signs Last Vital Signs Temp Pulse Resp BP Pulse Ox 98 F 102 H 18 141/78 99 11/11/18 12:57 11/11/18 12:57 11/11/18 12:57 11/11/18 12:57 11/11/18 12:57 - Physical Exam Comments: 11/11/18 13:49 HEAD: NC left eye periorbital hematoma EYES: Conjuntiva clear EOMI Ears: Canals and TM's normal NOSE: No d/c THROAT: Moist mucous membrances, oral pharanx clear, uvula midline NECK: Supple without adenopathy CARDIAC: S1 S2 LUNGS: CTA Full and Equal breath sounds ABDOMEN: Soft NT ND MS: Full ROM in all joints without edema NEUROLOGIC: No gross sensory or motor deficits, NVID SKIN: Normal color and temperature no lesions or rashes Right total knee arthroplasty incision is well-healed proximally. At the distal part of the incision does have a 3 cm superficial abrasion longitudinally oriented as if the incision split open. However this is a well-healed incision. Thighs and calves are soft and nontender range of motion 0- any degrees no gross sensorimotor deficits. 11/11/18 13:52 Diffuse minimal tenderness about the right shoulder, no sensory or motor deficits about the R UE Moderate Sedation - Procedure Monitoring Vital Signs: Procedure Monitoring Vital Signs Temperature 98 F 11/11/18 12:57 Pulse Rate 102 H 11/11/18 12:57 Respiratory Rate 18 11/11/18 12:57 Blood Pressure 141/78 11/11/18 12:57 O2 Sat by Pulse Oximetry (%) 99 11/11/18 12:57 ED Treatment Course - RADIOLOGY Radiology Studies Ordered: Category Date Time Status FACIAL BONES CT W/O CONTRAST [CT] Stat CT Scan 11/11/18 13:[address] WITHOUT CONTRAST [CT] Stat CT Scan 11/11/18 13:46 Ordered Medical Decision Making - Medical Decision Making 11/11/18 15:31 Scans were reviewed no acute process. Right shoulder x-ray shows a large subacromial bone spur no evidence of fracture or trauma. X-rays of the knee show while seated total knee arthroplasty without evidence of fracture or periprosthetic pathology.Multiple contusions we'll recommend dry sterile dressing changes twice a day until seen by her operating orthopedic surgeon for her knee replacement. She may have her shoulder reevaluated at that time as well. I will have her follow-up with neurology for further evaluation and treatment of her dizziness. This may be alcohol related as well. *DC/Admit/Observation/Transfer Diagnosis at time of Disposition: Shoulder contusion, Knee contusion, Knee abrasion, Closed head injury - Discharge Dispostion Disposition: HOME Condition at time of disposition: Stable Decision to Admit order: No - Referrals Referrals: ON STAFF,NOT [Primary Care Provider] - Gene Stoddard MD [Staff Physician] - - Patient Instructions Printed Discharge Instructions: DI for Closed Head Injury, Contusion Additional Instructions: Return to the emergency room for worsening symptoms please follow-up with your orthopedic surgeon Blake and shoulder pain as well as neurology fear dizziness after fall. Tylenol as directed for pain. Do not drink alcohol while on Tylenol or until cleared by neurology. - Post Discharge Activity
--- NOTE | 2018-11-12 14:37 | CONSULT ---
[facility] Psychiatric Consult - Data Date of interview: 11/12/18 Substance Abuse History: Smoking history: Current every day smoker. Have you smoked in the past 12 months: Yes. Aproximately how many cigarettes per day: 10. Hx Chewing Tobacco Use: No. Initiated information on smoking cessation: Yes. 'Breaking Loose' booklet given: 11/11/18. - Substance & Tx. History. Hx Alcohol Use: Yes. Hx Substance Use: Yes. Substance Use Type: Alcohol. Hx Substance Use Treatment: Yes ([facility] one year ago ). - Substances Abused. Alcohol. Route: Oral. Frequency: Daily. Amount used: 6pk and up. Age of first use: 20. Date of Last Use: 11/11/18 Additional Comment: Drug Screen is negative.
== END 2018-11-11 15:55 | disposition home or self-care (01) ==
LOC: JERFT 12:06
DX: S05.12XA Contusion of eyeball and orbital tissues, left eye, initial encounter (principal); S40.011A Contusion of right shoulder, initial encounter; S80.01XA Contusion of right knee, initial encounter; S80.211A Abrasion, right knee, initial encounter; F10.10 Alcohol abuse, uncomplicated; W18.39XA Other fall on same level, initial encounter; Y93.89 Activity, other specified; Y92.89 Other specified places as the place of occurrence of the external cause; Y99.8 Other external cause status; Z98.890 Other specified postprocedural states
CPT/HCPCS: 70450-TC; 70486-TC; 73030-TC-RT-FY; 73562-TC-RT-FY; 99281-25